=== PATIENT | male | born 1995 | race Hispanic/Latino ===

== ENCOUNTER 2019-07-02 06:23 | Emergency (ER) | payer OTHER ==
[~2019-07-02] VITALS: Ht 167.6 cm; Wt 117.9 kg
--- OUTSIDE RECORDS SUMMARY | 2019-07-02 06:26 | XMS REPORT ---
Author Author [facility] [place] Address Unknown Phone Unavailable Care Team Providers Care Supervisor Quality Control Name Role Phone Unavailable Unavailable Problems This patient has no known problems. Allergies, Adverse Reactions, Alerts This patient has no known allergies or adverse reactions. Medications This patient has no known medications. Encounters Start Date/Time End Date/Time Encounter Type Admission Type Attending [facility] Facility Care Department Encounter ID 2017-03-31 00:00:00 2017-03-31 00:00:00 Outpatient [facility] [id number]
[2019-07-02] MEDS ORDERED: PREDNISONE 20 MG TAB PO ONE (06:30)
[2019-07-02] MEDS ORDERED: PREDNISONE 20 MG TAB ONE (06:40)
--- NOTE | 2019-07-02 07:08 | Diagnostic Imaging Report ---
EXAMINATION: CHEST 2 VIEWS INDICATION: Cough. COMPARISON: None FINDINGS: TUBES and LINES: None. LUNGS: Patchy ill-defined density in the left lower lobe suggestive of pneumonia in this patient's clinical setting. PLEURA: No pleural effusion or pneumothorax. HEART AND MEDIASTINUM: The cardiomediastinal silhouette is unremarkable. BONES AND SOFT TISSUES: No acute osseous lesion. Soft tissues are unremarkable. UPPER ABDOMEN: No free air under the diaphragm. IMPRESSION: Patchy ill-defined density in the left lower lobe suggestive of pneumonia in this patient's clinical setting. Recommend follow-up chest PA and lateral views after treatment in 6-8 weeks to document resolution. Signed by: Dr. Marline Raza M.D. on 07/02/2019 7:05 AM
[2019-07-02] MEDS ORDERED: AZITHROMYCIN 500MG/NS 250 ML 250 ML IV STA (08:52)
[2019-07-02] MEDS ORDERED: TYLENOL WITH C1 EACH PO (08:55)
[2019-07-02] MEDS ORDERED: LEVAQUIN500 MG PO (08:55)
[2019-07-02] MEDS ORDERED: TESSALON PERLE100 MG PO (08:55)
[2019-07-02] MEDS ORDERED: CEFTRIAXONE SOD 1 GM/NS 50 ML 50 ML IV ONE (09:00)
[2019-07-02] MEDS ORDERED: SODIUM CHLORIDE 0.9% 1000ML 1,000 ML IV STA (09:12)
[2019-07-02] MEDS ORDERED: ACETAMINOPHEN/CODEINE 300MG - 30MG TAB PO ONE (09:15)
[2019-07-02] MEDS ORDERED: SODIUM CHLORIDE 0.9% 1000ML 1,000 ML IV ONE (09:35)
[2019-07-02 09:36] LABS: BASOPHILS % 0.2 % (0.0-1.0); EOSINOPHILS # (AUTO) 0.1 (0.0-0.4); HEMATOCRIT 45.6 % (38.2-49.6); HEMOGLOBIN 15.7 g/dL (14.0-18.0); LYMPHOCYTES # (AUTO) 1.2 (1.0-3.2); LYMPHOCYTES % 18.4 % (18.0-39.1); MEAN CORPUSCULAR HEMOGLOBIN 29.2 pg (28-32); MEAN CORPUSCULAR HGB CONC 34.4 g/dL (31-35); MEAN CORPUSCULAR VOLUME 84.9 fL (81-99); MONOCYTES # (AUTO) 0.3 (0.2-0.8); MONOCYTES % 4.8 % (4.4-11.3); NEUTROPHILS # (AUTO) 4.7 (2.1-6.9); NEUTROPHILS % 75.1 % (38.7-80.0); PLATELET COUNT 234 x10e3/uL (140-360); RED BLOOD COUNT 5.37 x10e6/uL (4.3-5.7); RED CELL DISTRIBUTION WIDTH 13.5 % (11.7-14.4)
[2019-07-02 10:15] LABS: ALANINE AMINOTRANSFERASE 70 IU/L (0-55); ALBUMIN 3.7 g/dL (3.5-5.0); ALBUMIN/GLOBULIN RATIO 0.9 (0.8-2.0); ALKALINE PHOSPHATASE 57 IU/L (40-150); ANION GAP 13.2 mmol/L (8-16); BLOOD UREA NITROGEN 10 mg/dL (7-26); BUN/CREATININE RATIO 13 (6-25); CALCIUM 10.1 mg/dL (8.4-10.2); CARBON DIOXIDE 26 mmol/L (22-29); CHLORIDE 102 mmol/L (98-107); CREATININE, SERUM 0.78 mg/dL (0.72-1.25); EST GLOMERULAR FILTRATION RATE > 60 ML/MIN (60-); GLUCOSE 96 mg/dL (74-118); POTASSIUM 4.2 mmol/L (3.5-5.1); SODIUM 137 mmol/L (136-145)
[2019-07-02 11:52] VITALS: BP 123/84
== END 2019-07-02 12:02 | disposition home or self-care (01) ==
LOC: ER 06:23
DX: R05 Cough (principal); J18.9 Pneumonia, unspecified organism
CPT/HCPCS: 36415; 71046; 80053; 85025; 87040; 99284; J0456; J0696; J7030; J7512

== ENCOUNTER 2025-07-07 05:51 | Emergency (ER) | payer BC, OTHER ==
[~2025-07-07] VITALS: Ht 167.6 cm; Wt 108.4 kg
[~2025-07-07 05:51] MED LIST: LEVAQUIN500 MG PO; TESSALON PERLE100 MG PO; TYLENOL WITH C1 EACH PO
[2025-07-07 05:52] VITALS: TEMP 97.8
[2025-07-07] MEDS: ONDANSETRON HCL INJ 2MG/ML 2ML 2 MG/ML VIAL IV STA (06:25)
[2025-07-07] MEDS: SODIUM CHLORIDE 0.9% 1000ML 1,000 ML IV ONE (06:25)
[2025-07-07] MEDS ORDERED: LIDOCAINE VISC 2% SOLN 15 ML UDC ONE (06:32)
[2025-07-07] MEDS ORDERED: MAGNESIUM/ALUMINUM/SIMETHICONE 30 ML UDC ONE (06:32)
[2025-07-07] MEDS ORDERED: BELLADONNA ALK/PHENOBARBITAL 5 ML UDC ONE (06:32)
[2025-07-07] MEDS: FAMOTIDINE 20 MG/2 ML VIAL IV STA (06:34)
[2025-07-07] MEDS: DONNATAL/LIDOCAINE/MAALOX 30 ML SUSP PO ONE (06:34)
[2025-07-07 06:55] LABS: BASOPHILS % 0.4 % (0.0-1.0); EOSINOPHILS % 3.6 % (0.0-6.0); LYMPHOCYTES % 37.3 % (18.0-39.1); MONOCYTES % 7.6 % (4.4-11.3); NEUTROPHILS % 50.7 % (38.7-80.0); RED CELL DISTRIBUTION WIDTH 13.3 % (11.7-14.4)
[2025-07-07 07:40] LABS: EST GLOMERULAR FILTRATION RATE 113.0 ML/MIN (>=60)
[2025-07-07] MEDS ORDERED: PEPCID20 MG PO (07:52)
[2025-07-07 08:04] VITALS: PULSE 63; RESP 16; O2SAT 98
== END 2025-07-07 08:30 | disposition home or self-care (01) ==
LOC: ER 06:25
DX: R10.13 Epigastric pain (principal); K29.70 Gastritis, unspecified, without bleeding; R11.2 Nausea with vomiting, unspecified; E66.01 Morbid (severe) obesity due to excess calories; F17.210 Nicotine dependence, cigarettes, uncomplicated
CPT/HCPCS: 36415; 80053; 83690; 85025; 99283; J1308; J2405; J7030